=== PATIENT | female | born 1990 ===

== ENCOUNTER → 2017-12-09 | Outpatient (CLI) | payer BC ==
[~2017-12-09] MED LIST: ACET-1966 PO; MESA800T2 PO; NORE-74 PO; PREN-129 PO
[2017-12-09 17:33] LABS: PLATELET COUNT, AUTOMATED 263 K/uL (150-450)
[2017-12-09 17:48] LABS: LDL CHOLESTEROL 82 mg/dl
== END ==
LOC: LAB 16:28
PROVIDERS: ATTEND Emergency Medicine
DX: K51.90 Ulcerative colitis, unspecified, without complications (principal); R10.9 Unspecified abdominal pain; E78.5 Hyperlipidemia, unspecified; R00.2 Palpitations
CPT/HCPCS: 36415; 81001; 82040; 82247; 82306; 82310; 82374; 82435; 82465; 82565; 82728; 82947; 83718; 84075; 84132; 84155; 84295; 84443; 84450; 84460; 84478; 84520; 85025; 85651; 86140

== ENCOUNTER → 2017-12-11 | Outpatient (CLI) | payer BC | LOC: LAB 14:17 | PROVIDERS: ATTEND Emergency Medicine | DX: R10.9 Unspecified abdominal pain (principal); D75.89 Other specified diseases of blood and blood-forming organs | CPT/HCPCS: 36415; 82607; 82746; 87338 ==

== ENCOUNTER → 2017-12-17 | Outpatient (CLI) | payer BC | LOC: LAB 07:34 | PROVIDERS: ATTEND Emergency Medicine | DX: R10.31 Right lower quadrant pain (principal) | CPT/HCPCS: 87338 ==

== ENCOUNTER → 2018-05-19 | Outpatient (CLI) | payer OTHER ==
[~2018-05-19] MED LIST changes: +ETON1VAG7 VG; +NORE-75 PO
== END ==
LOC: LAB 11:46
PROVIDERS: ATTEND Obstetrics & Gynecology
DX: Z11.3 Encounter for screening for infections with a predominantly sexual mode of transmission (principal); Z11.8 Encounter for screening for other infectious and parasitic diseases
CPT/HCPCS: 87491; 87591

== ENCOUNTER → 2018-05-19 | Outpatient (CLI) | payer OTHER | LOC: LAB 12:04 | PROVIDERS: ATTEND Obstetrics & Gynecology | DX: N92.6 Irregular menstruation, unspecified (principal) | CPT/HCPCS: 36415; 84146; 84443 ==

== ENCOUNTER → 2018-06-01 | Outpatient (CLI) | payer OTHER ==
--- NOTE | 2018-06-01 16:43 | RADIOLOGY IMAGING REPORT ---
FACILITY: [facility] - [place] PATIENT NAME: Lorraine Cardenas : 1990 MR: [id number] V: [id number] EXAM DATE: ORDERING PHYSICIAN: SHEELA OWUSU TECHNOLOGIST: Location: [facility] [place] Patient: Lorraine Cardenas : 1990 Visit/Account:[id number] Date of Sevice: 06/01/2018 EXAMINATION: Transvaginal pelvic ultrasound with duplex Doppler evaluation 06/01/2018 9:43 AM HISTORY: IRREGULAR MENSTRUATION, UNSPECIFIED.; LMP: 05/18/2018 COMPARISON STUDIES: none. FINDINGS: Uterus: 7.4 x 4.1 x 4.8 cm Myometrium: negative Endometrium: negative Cervix: Unremarkable. NuvaRing was not well-defined sonographically. Ovaries: right ovary 2.0 x 2.0 x 1.0 cm, left ovary 2.6 x 2.1 x 1.3 cm, small follicles in both ovari es. Blood flow is documented in each ovary by Doppler ultrasound. Adnexa: negative Free pelvic fluid: none IMPRESSION: Unremarkable transvaginal pelvic ultrasound. Report Dictated By: Adryan Hoffman MD at 06/01/2018 4:35 PM Report E-Signed By: Adryan Hoffman MD at 06/01/2018 4:38 PM WSN:[id number]
== END ==
LOC: RAD 09:27
PROVIDERS: ATTEND Obstetrics & Gynecology
DX: N92.6 Irregular menstruation, unspecified (principal); R10.2 Pelvic and perineal pain

== ENCOUNTER → 2018-06-10 | Outpatient (CLI) | payer OTHER ==
[2018-06-10 10:47] LABS: PLATELET COUNT, AUTOMATED 302 K/uL (150-450)
== END ==
LOC: LAB 10:26
PROVIDERS: ATTEND Surgery
DX: K51.20 Ulcerative (chronic) proctitis without complications (principal); K51.90 Ulcerative colitis, unspecified, without complications
CPT/HCPCS: 36415; 82040; 82247; 82248; 82310; 82374; 82435; 82565; 82947; 84075; 84132; 84155; 84295; 84450; 84460; 84520; 85025; 86140

== ENCOUNTER → 2018-07-29 | Day surgery (SDC) | payer OTHER ==
[~2018-07-29] VITALS: Ht 162.6 cm; Wt 74.8 kg
[~2018-07-29] MED LIST changes: +LIDOCAINE MPF 1% 5 ML VIAL ONE; +LIDOCAINE/SOD BICARB 8.4% SYR ID ONE; +NORMOSOL R SOLN(*) 1000 ML BAG 1,000 ML IV PRN; +PROPOFOL EMUL(*) 10MG/ML 20 ML 60 ML ONE
[2018-07-29 07:47] VITALS: BP 133/86
[2018-07-29 10:20] VITALS: BP 86/63
--- NOTE | 2018-07-29 10:30 | Short(Outpt) Discharge Summary ---
Discharge Summary Reason for Hosp/Final Diag: (1) Ulcerative proctitis Status: Chronic Hospital Course & Plan: Colonoscopy completed without problems. Departure Discharge to: Home, Self Care Discharge Instructions Home Meds Active Scripts Etonogestrel/Ethinyl Estradiol (NUVARING VAGINAL RING) 1 Each Vag.ring, 1 EACH VG DIRECTED, #[address] RING PV FOR 3 WEEKS AND REMOVE FOR 1 WEEK Prov:SHEELA OWUSU MD 05/19/18 Mesalamine (Mesalamine) 800 Mg Tablet.dr, 1 TAB PO BID, #180 TAB 2 Refills Prov:RAJIV COBOS MD 04/20/18 Reported Medications Acetaminophen (TYLENOL) 325 Mg Tablet, 650 MG PO DAILY PRN for PRN, TAB 12/09/17 Diet: Regular Activity: As Tolerated Special Instructions: Your colonoscopy was completed without problems and your prep was excellent (Good Job!!). I found only mild inflammation limited to about 1 inch of your lower rectum. The rest of your colon and rectum were completely normal. I recommend that you undergo another colonoscopy in 2-3 years. You can decrease mesalamine to 1 tablet twice each day. Problem Qualifiers (1) Ulcerative proctitis: Digestive disease complication type: without complication Qualified Codes: K51.20 - Ulcerative (chronic) proctitis without complications RAJIV COBOS MD Jul 29, 2018 10:30
[2018-07-29 10:39] VITALS: BP 114/88
[2018-07-29 11:02] VITALS: BP 109/76
[2018-07-29 11:22] VITALS: BP 106/72
[2018-07-29 11:23] VITALS: BP 122/84
--- NOTE | 2018-07-29 14:48 | Short(Outpt) Discharge Summary ---
Discharge Summary Reason for Hosp/Final Diag: (1) Ulcerative proctitis Status: Chronic Hospital Course & Plan: Colonoscopy completed without problems. Departure Discharge to: Home, Self Care Discharge Instructions Home Meds Active Scripts Etonogestrel/Ethinyl Estradiol (NUVARING VAGINAL RING) 1 Each Vag.ring, 1 EACH VG DIRECTED, #[address] 1 RING PV FOR 3 WEEKS AND REMOVE FOR 1 WEEK Prov:SHEELA OWUSU MD 05/19/18 Mesalamine (Mesalamine) 800 Mg Tablet.dr, 1 TAB PO BID, #180 TAB 2 Refills Prov:RAJIV COBOS MD 04/20/18 Reported Medications Acetaminophen (TYLENOL) 325 Mg Tablet, 650 MG PO DAILY PRN for PRN, TAB 12/09/17 Diet: Regular Activity: As Tolerated Special Instructions: Your colonoscopy was completed without problems and your prep was excellent (Good Job!!). I found only mild inflammation limited to about 1 inch of your lower rectum. The rest of your colon and rectum were completely normal. I recommend that you undergo another colonoscopy in 2-3 years. You can decrease mesalamine to 1 tablet twice each day. Copies to: TREVIN ARREDONDO MD ; Problem Qualifiers (1) Ulcerative proctitis: Digestive disease complication type: without complication Qualified Codes: K51.20 - Ulcerative (chronic) proctitis without complications RAJIV COBOS MD Jul 29, 2018 14:48
== END ==
LOC: OR 01:41
PROVIDERS: ATTEND Surgery
DX: K51.20 Ulcerative (chronic) proctitis without complications (principal)
CPT/HCPCS: 00812; 45378; 81025; J2001; J2704

== ENCOUNTER → 2018-12-10 | Outpatient (CLI) | payer OTHER ==
[~2018-12-10] MED LIST changes: -LIDOCAINE MPF 1% 5 ML VIAL ONE; -LIDOCAINE/SOD BICARB 8.4% SYR ID ONE; -NORMOSOL R SOLN(*) 1000 ML BAG 1,000 ML IV PRN; -PROPOFOL EMUL(*) 10MG/ML 20 ML 60 ML ONE
== END ==
LOC: LAB 08:19
PROVIDERS: ATTEND Emergency Medicine
DX: Z00.00 Encounter for general adult medical examination without abnormal findings (principal); E53.8 Deficiency of other specified B group vitamins
CPT/HCPCS: 82465; 82607; 83090; 83718; 84478

== ENCOUNTER → 2018-12-10 | Outpatient (CLI) | payer OTHER ==
[2018-12-10 08:39] LABS: PLATELET COUNT, AUTOMATED 250 K/uL (150-450)
== END ==
LOC: LAB 08:21
PROVIDERS: ATTEND Surgery
DX: K51.20 Ulcerative (chronic) proctitis without complications (principal); K51.90 Ulcerative colitis, unspecified, without complications
CPT/HCPCS: 36415; 82040; 82247; 82248; 82310; 82374; 82435; 82565; 82947; 84075; 84132; 84155; 84295; 84450; 84460; 84520; 85025; 86140

== ENCOUNTER → 2018-12-17 | Outpatient (CLI) | payer OTHER ==
[~2018-12-17] MED LIST changes: +CYAN20003 PO
== END ==
LOC: LAB 17:15
PROVIDERS: ATTEND Emergency Medicine
DX: K51.90 Ulcerative colitis, unspecified, without complications (principal); E53.8 Deficiency of other specified B group vitamins
CPT/HCPCS: 36415; 82306; 82746; 82784; 83516; 83921; 86340

== ENCOUNTER → 2019-01-07 | Outpatient (CLI) | payer OTHER | LOC: LAB 09:42 | PROVIDERS: ATTEND Emergency Medicine | DX: R63.5 Abnormal weight gain (principal); E53.8 Deficiency of other specified B group vitamins; R35.1 Nocturia | CPT/HCPCS: 36415; 81001; 82607; 83036; 84443 ==